=== PATIENT | female | born 2005 | race Caucasian/White ===

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

== ENCOUNTER 2024-01-03 18:52 | Emergency (ER) | payer MEDICAID ==
[~2024-01-03] VITALS: Ht 167.6 cm; Wt 54.0 kg
[2024-01-03 19:27] VITALS: O2SAT 97
[2024-01-03] MEDS ORDERED: TRAM50TA3 MT (20:14)
[2024-01-03] MEDS: IBUPROFEN 800MG TABLET PO ONE (21:41)
[2024-01-03 21:42] VITALS: BP 150/78; PULSE 98; RESP 17; TEMP 36.72516; O2SAT 98
== END 2024-01-03 21:43 | disposition home or self-care (01) ==
LOC: ER 18:52
DX: S92.352A Displaced fracture of fifth metatarsal bone, left foot, initial encounter for closed fracture (principal); M25.572 Pain in left ankle and joints of left foot; X50.1XXA Overexertion from prolonged static or awkward postures, initial encounter; Y93.89 Activity, other specified; Y92.89 Other specified places as the place of occurrence of the external cause; Y99.8 Other external cause status
CPT/HCPCS: 73610; 73630; 29515; 99284; Z7610